=== PATIENT | female | born 1970 | race Caucasian/White ===

== ENCOUNTER 2022-12-12 02:25 | Emergency (ER) | payer OTHER ==
[~2022-12-12] VITALS: Ht 152.4 cm; Wt 52.2 kg
[2022-12-12 02:36] VITALS: BP 167/86
--- NOTE | 2022-12-12 02:36 | NUR ---
[facility] FOR MEDICAL CLEARANCE PRIOR TO BOOKING. NO MEDICAL COMPLAINT REQUESTING PICC LINE FLUSH USED FOR CHEMOTHERAPY
== END 2022-12-12 02:58 ==
LOC: ER 02:37
DX: Z02.9 Encounter for administrative examinations, unspecified (principal); Z85.3 Personal history of malignant neoplasm of breast